=== PATIENT | female | born 1950 | race Caucasian/White ===

== ENCOUNTER → 2019-04-03 | Outpatient (CLI) | payer MEDICARE ==
[~2019-04-03] MED LIST: ISOVUE-370 76% 100ML VIAL (Q9967) As Ordered ONE
--- NOTE | 2019-04-03 11:55 | REP ---
CT neck soft tissues: 04/03/2019. Indication: Vocal cord paralysis. Comparison: None. Technique: Axial images of the neck soft tissues were obtained following the administration of 75 ml IV Isovue 370. Sagittal and coronal reconstructions were provided. Findings: There is questionable medial as aeration of the left true vocal cord. No abnormal solid soft tissue mass, abnormal fluid collection or lymphadenopathy within the neck soft tissues are detected. Bilateral carotid atherosclerotic disease is noted. Spondylosis of the cervical spine is present throughout. There is no severe narrowing of the spinal canal. No focal submandibular, parotid or thyroid gland abnormalities are present. No ocular, intraorbital or intracranial abnormalities are detected. Please see dedicated CT chest report for additional details. Impression: Questionable CT evidence of left vocal cord paralysis. Clinical/direct inspection correlation is necessary. Electronically Signed by Luis Enrique Trinh DO 04/03/2019 11:47 A
--- NOTE | 2019-04-04 07:57 | REP ---
Clinical: Vocal cord paralysis. Technique: Axial contrast enhanced images from the thoracic inlet to the upper abdomen with coronal and sagittal re-formations using 100 ml Isovue 370 intravenous contrast material. Comparison: None. Findings: The bilateral lung delvalle demonstrate chronic age-related changes and interstitial changes related to prior granulomatous disease including few scattered calcified granulomata. No focal consolidation, effusion, or pneumothorax. Tracheobronchial tree is patent. No adenopathy. Mediastinum demonstrates normal vasculature and heart/pericardium. Surrounding musculoskeletal structures are intact. Impression: Chronic changes related to prior granulomatous disease. No acute mediastinal or pleuroparenchymal process. Electronically Signed by Joseph Patel MD 04/04/2019 07:49 A
== END ==
LOC: M RAD 09:05
PROVIDERS: ATTEND Otolaryngology
DX: J38.01 Paralysis of vocal cords and larynx, unilateral (principal)
CPT/HCPCS: 70491; 71260; Q9967

== ENCOUNTER → 2019-10-02 | Outpatient (CLI) | payer MEDICARE, OTHER ==
[~2019-10-02] MED LIST changes: +FAMO20TA PO; +IRON65TA2 PO; -ISOVUE-370 76% 100ML VIAL (Q9967) As Ordered ONE; +VITAD1000T PO
== END ==
LOC: M LABSMTC 10:33
PROVIDERS: ATTEND Anesthesiology
DX: Z01.818 Encounter for other preprocedural examination (principal); Z11.59 Encounter for screening for other viral diseases
CPT/HCPCS: C9803; U0003

== ENCOUNTER 2019-10-05 07:09 | Day surgery (SDC) | payer OTHER ==
[~2019-10-05] VITALS: Ht 154.9 cm; Wt 50.8 kg
[~2019-10-05 07:09] MED LIST changes: +LR 1,000 ML IV ONE; +dexameTHASONE 4 MG/ML 1ML VIAL (J1100 PER 1MG) IV ONE
[2019-10-05] MEDS ORDERED: METHYLENE BLUE 0.5% (5MG/ML) 10 ML AMP (PROVAYBLUE)(Q9968 PER 1MG) As Ordered ONE (08:14)
[2019-10-05] MEDS ORDERED: LIDOCAINE W/EPINEPHRINE 1% 20ML VIAL As Ordered ONE (08:15)
[2019-10-05] MEDS ORDERED: OXYMETAZOLINE NASAL SPRAY (AFRIN) As Ordered ONE (08:15)
[2019-10-05] MEDS ORDERED: propofoL 200 MG/20 ML VIAL As Ordered ONE (08:19)
[2019-10-05] MEDS ORDERED: fentaNYL 100 MCG/2 ML INJECTION (J3010) As Ordered ONE (08:19)
[2019-10-05] MEDS ORDERED: SUCCINYLCHOLINE 100 MG/5 ML SYRINGE (J0330) As Ordered ONE (08:19)
[2019-10-05] MEDS ORDERED: MIDAZOLAM INJ 2MG/2ML VIAL (J2250 PER 1MG) As Ordered ONE (08:19)
[2019-10-05] MEDS ORDERED: ROCURONIUM BROMIDE 50 MG/5 ML VIAL As Ordered ONE (08:19)
[2019-10-05] MEDS ORDERED: LIDOCAINE 2% 100MG/5ML SDV (FOR ANES.) As Ordered ONE (08:19)
[2019-10-05] MEDS ORDERED: dexameTHASONE 4 MG/ML 1ML VIAL (J1100 PER 1MG) As Ordered ONE ×2 (08:35→08:36)
[2019-10-05] MEDS ORDERED: GLYCOPYRROLATE INJ 0.2 MG/ML 2 ML VIAL As Ordered ONE (08:55)
[2019-10-05] MEDS ORDERED: ONDANSETRON 4MG/2ML VIAL As Ordered ONE (09:02)
[2019-10-05] MEDS ORDERED: SUGAMMADEX SODIUM 500 MG/5 ML VIAL (BRIDION) As Ordered ONE ×2 (09:02→09:03)
[2019-10-05] MEDS ORDERED: ACETAMINOPHEN 1000MG 100ML IV BTL (OFIRMEV) (J0131 PER 10MG) As Ordered ONE (09:02)
[2019-10-05] MEDS ORDERED: fentaNYL 100 MCG/2 ML INJECTION (J3010) IV PRN (10:00)
[2019-10-05] MEDS ORDERED: ONDANSETRON 4MG/2ML VIAL IV PRN (10:00)
[2019-10-05] MEDS ORDERED: LR 1,000 ML IV SCH ×2 (10:00)
[2019-10-05 10:29] VITALS: BP 121/65
== END 2019-10-05 11:05 | disposition home or self-care (01) ==
LOC: M SDC 07:09
PROVIDERS: ATTEND Otolaryngology
DX: K14.3 Hypertrophy of tongue papillae (principal); J38.01 Paralysis of vocal cords and larynx, unilateral; D64.9 Anemia, unspecified; M19.90 Unspecified osteoarthritis, unspecified site; E55.9 Vitamin D deficiency, unspecified; Z79.899 Other long term (current) drug therapy; Z88.0 Allergy status to penicillin; Z88.2 Allergy status to sulfonamides; Z88.1 Allergy status to other antibiotic agents
CPT/HCPCS: 31536; 88305; J0131; J0330; J1100; J2250; J2405; J3010; Q9968

== ENCOUNTER → 2021-01-21 | Outpatient (CLI) | payer OTHER ==
[~2021-01-21] MED LIST changes: +COVI100V IM; +D31000TA2 PO; +GASTROGRAFIN SOLUTION 30ML (Q9963) As Ordered ONE; +ISOVUE-370 76% 100ML VIAL As Ordered ONE; -LR 1,000 ML IV ONE; +OMEP40CA4 PO; -VITAD1000T PO; -dexameTHASONE 4 MG/ML 1ML VIAL (J1100 PER 1MG) IV ONE
--- NOTE | 2021-01-22 09:08 | REP ---
INDICATION: LYMPHOMA. COMPARISON: None TECHNIQUE: Axial contrast-enhanced images from the lung bases to the pubic symphysis using oral and 100 cc Isovue 370 intravenous contrast material. Delayed images of the abdomen obtained. This CT examination was performed using the following dose reduction techniques: Automated exposure control, adjustment of mA and/or kv according to the patient's size, and the use of iterative reconstruction technique. FINDINGS: Liver, spleen, gallbladder, bilateral adrenal glands and right kidney are normal. Left kidney demonstrates multiple peripelvic cysts measuring roughly up to 2 cm diameter. The pancreas has a presumed atrophic appearance with partial fatty replacement., but there is somewhat irregular prominent low-density involving the head/uncinate process raising the possibility of acute pathology. The enteric system including stomach, small, and large bowel appears normal. No evidence for obstruction or acute inflammatory process. Normal terminal ileum and appendix are identified in the right lower quadrant. Scattered colonic diverticula noted without acute diverticulitis. Pelvis demonstrates normal bladder and prior hysterectomy. No ascites. No free air. No intraperitoneal or retroperitoneal adenopathy. Few shotty inguinal lymph nodes are identified and nonspecific. Abdominal aorta and vasculature appear normal. Musculoskeletal structures are intact and without acute osseous abnormality. IMPRESSION: 1. Somewhat irregular appearance to the pancreas may be secondary to age-related atrophic changes, but correlation/follow-up should be considered to exclude the possibility of acute pathology at the head/uncinate. Pre and postcontrast MRI of the abdomen may be warranted. 2. No significant adenopathy. 3. No further acute abdominal pathology appreciated. No ascites. No free air. No fat stranding. No adenopathy. <Electronically signed by Joseph Patel > 01/22/21 [id number]
--- NOTE | 2021-01-27 08:40 | REP ---
INDICATION: LYMPHOMA COMPARISON: Outside CT examination dated 09/14/2019 TECHNIQUE: Axial contrast enhanced images from the thoracic inlet to the upper abdomen with coronal and sagittal reformations using 100 ml Isovue 370 intravenous contrast material. Examination is followed by CT of the abdomen and pelvis. This CT examination was performed using the following dose reduction techniques: Automated exposure control, adjustment of mA and/or kv according to the patient's size, and use of iterative reconstruction technique. FINDINGS: Few scattered calcified and noncalcified nodules are again identified. There is a 1.7 cm density in the right apex along the pleural surface likely scarring and similar to prior examination. No acute consolidation. No effusion. No pneumothorax. Tracheobronchial tree is patent. Few calcified mediastinal and hilar lymph nodes noted without acute current axillary, mediastinal or hilar adenopathy. Few prevascular mediastinal lymph nodes again identified and unchanged. Thoracic aorta, pulmonary vasculature and heart/pericardium are relatively stable and within normal limits. Atherosclerotic changes to the aorta and coronary arteries noted. Surrounding musculoskeletal structures are intact and without acute osseous abnormality. IMPRESSION: 1. Chronic findings consistent with granulomatous disease. 2. No acute mediastinal or pleuroparenchymal process. 3. Few mediastinal lymph nodes are essentially unchanged as compared with 10/07/2020. No significant progressive adenopathy noted. <Electronically signed by Joseph Patel > 01/27/21 [id number]
== END ==
LOC: M RAD 11:52
PROVIDERS: ATTEND Internal Medicine Hematology & Oncology
DX: C83.00 Small cell B-cell lymphoma, unspecified site (principal); N28.1 Cyst of kidney, acquired; K57.90 Diverticulosis of intestine, part unspecified, without perforation or abscess without bleeding; K86.9 Disease of pancreas, unspecified; R91.8 Other nonspecific abnormal finding of lung field; I70.0 Atherosclerosis of aorta; I25.10 Atherosclerotic heart disease of native coronary artery without angina pectoris
CPT/HCPCS: 71260; 74177; Q9963; Q9967

== ENCOUNTER → 2021-02-07 | Outpatient (CLI) | payer OTHER ==
[~2021-02-07] MED LIST changes: -GASTROGRAFIN SOLUTION 30ML (Q9963) As Ordered ONE; -ISOVUE-370 76% 100ML VIAL As Ordered ONE; +PROHANCE 279.3MG/ML 15ML VIAL As Ordered ONE
--- NOTE | 2021-02-07 19:07 | REP ---
INDICATION: ABN FINDINGS OF PANCREAS. COMPARISON: Prior CT of the abdomen and pelvis 01/21/2021 was reviewed. TECHNIQUE: 3T multiplanar MRI imaging of the pancreas was obtained using various sequences. Exam is performed before and after intravenous gadolinium administration. Gadolinium utilized 9 cc of ProHance. FINDINGS: There is rather extensive appearing pancreatic atrophy. There are no enhancing pancreatic mass lesions. There is no evidence of intrapancreatic ductal dilatation. There are multiple mm sized pancreatic cysts. There is no free fluid in the abdomen or retroperitoneum. There are multiple left renal parapelvic cysts. There are no enhancing hepatic abnormalities. There are no abnormal renal or adrenal lesions which enhance. There is no para-aortic adenopathy. The cortical and marrow signal seen throughout the imaged osseous structures is within normal limits. IMPRESSION: Advanced pancreatic atrophic change and tiny cysts. There is no evidence of abnormal enhancement or ductal dilatation. Other findings as described above. <Electronically signed by Isaiah Choi > 02/07/21 [id number]
== END ==
LOC: M RAD 16:52
PROVIDERS: ATTEND Internal Medicine Hematology & Oncology
DX: R93.5 Abnormal findings on diagnostic imaging of other abdominal regions, including retroperitoneum (principal); K86.2 Cyst of pancreas; N28.1 Cyst of kidney, acquired; K86.89 Other specified diseases of pancreas
CPT/HCPCS: 74183; A9576

== ENCOUNTER → 2021-02-22 | Outpatient (CLI) | payer OTHER ==
[~2021-02-22] MED LIST changes: +OMEP1CAP73 PO; -PROHANCE 279.3MG/ML 15ML VIAL As Ordered ONE; +SUCR1TA PO
== END ==
LOC: M LABSMTC 11:09
PROVIDERS: ATTEND Anesthesiology
DX: Z01.812 Encounter for preprocedural laboratory examination (principal); Z20.822 Contact with and (suspected) exposure to COVID-19

== ENCOUNTER 2021-02-27 10:55 | Day surgery (SDC) | payer OTHER ==
[~2021-02-27] VITALS: Ht 152.4 cm; Wt 44.0 kg
[~2021-02-27 10:55] MED LIST changes: +NS 1,000 ML IV ONE
[2021-02-27] MEDS ORDERED: propofoL 500 MG/50 ML VIAL As Ordered ONE (12:10)
[2021-02-27] MEDS ORDERED: fentaNYL 100 MCG/2 ML INJECTION (J3010) As Ordered ONE (12:10)
[2021-02-27] MEDS ORDERED: ePHEDrine SULFATE 25 MG/5 ML(5MG/ML) SYRINGE As Ordered ONE (13:33)
--- NOTE | 2021-02-27 13:50 | ROOR ---
Patient Name: Fifi Andrade Procedure Date: 02/27/2021 1:18 PM Date of : 1950 Age: 70 Room: [facility] Gender: Female Note Status: Finalized Procedure: Upper GI endoscopy Indications: Dyspepsia, Weight loss Providers: Hansel Lawler MD Referring MD: Zohreh PEARCE MD Requesting Provider: Medicines: Monitored Anesthesia Care Complications: No immediate complications. Procedure: Pre-Anesthesia Assessment: - Prior to the procedure, a History and Physical was performed, and patient medications and allergies were reviewed. The patient is competent. The risks and benefits of the procedure and the sedation options and risks were discussed with the patient. All questions were answered and informed consent was obtained. Patient identification and proposed procedure were verified by the physician, the nurse and the anesthesiologist in the procedure room. Mental Status Examination: alert and oriented. Airway Examination: normal oropharyngeal airway and neck mobility. Respiratory Examination: clear to auscultation. CV Examination: normal. Prophylactic Antibiotics: The patient does not require prophylactic antibiotics. Prior Anticoagulants: The patient has taken no previous anticoagulant or antiplatelet agents. ASA Grade Assessment: II - A patient with mild systemic disease. After reviewing the risks and benefits, the patient was deemed in satisfactory condition to undergo the procedure. The anesthesia plan was to use monitored anesthesia care (MAC). Immediately prior to administration of medications, the patient was re-assessed for adequacy to receive sedatives. The heart rate, respiratory rate, oxygen saturations, blood pressure, adequacy of pulmonary ventilation, and response to care were monitored throughout the procedure. The physical status of the patient was re-assessed after the procedure. The Endoscope was introduced through the mouth, and advanced to the second part of duodenum. The upper GI endoscopy was accomplished without difficulty. The patient tolerated the procedure well. Findings: The examined esophagus was normal. The Z-line was regular and was found 40 cm from the incisors. Scattered minimal inflammation characterized by erythema and granularity was found in the gastric antrum. Biopsies were taken with a cold forceps for Helicobacter pylori testing. Verification of patient identification for the specimen was done by the physician and nurse using the patient's name, date and medical record number. Estimated blood loss was minimal. The duodenal bulb and second portion of the duodenum were normal. Biopsies for histology were taken with a cold forceps for evaluation of celiac disease. Impression: - Normal esophagus. - Z-line regular, 40 cm from the incisors. - Gastritis. Biopsied. - Normal duodenal bulb and second portion of the duodenum. Biopsied. Recommendation: - Patient has a contact number available for emergencies. The signs and symptoms of potential delayed complications were discussed with the patient. Return to normal activities tomorrow. Written discharge instructions were provided to the patient. - High fiber diet. - Continue present medications. - Await pathology results. - Return to GI clinic in [facility] (address: [address] [place] [address], [facility], [place], [place],[address]) in 4 -- 6 weeks. Please call GI clinic @ [phone] for apppointment date and time. - Return to primary care physician. Procedure Code(s): --- Professional --- 84535, Esophagogastroduodenoscopy, flexible, transoral; with biopsy, single or multiple Diagnosis Code(s): --- Professional --- K29.70, Gastritis, unspecified, without bleeding R10.13, Epigastric pain R63.4, Abnormal weight loss CPT copyright 2019 [employer]. All rights reserved. The codes documented in this report are preliminary and upon industrial locomotive operator review may be revised to meet current compliance requirements. Hansel Lawler MD Hansel Lawler MD 02/27/2021 1:50:31 PM Electronically signed by Hansel Lawler MD Number of Addenda: 0 Note Initiated On: 02/27/2021 1:18 PM Estimated Blood Loss: Estimated blood loss was minimal.
--- NOTE | 2021-02-27 13:58 | ROOR ---
Patient Name: Fifi Andrade Procedure Date: 02/27/2021 1:18 PM Date of : 1950 Age: 70 Room: [facility] Gender: Female Note Status: Finalized Procedure: Colonoscopy Indications: Change in bowel habits, Constipation, Weight loss Providers: Hansel Lawler MD Referring MD: Zohreh PEARCE MD Requesting Provider: Medicines: Monitored Anesthesia Care Complications: No immediate complications. Procedure: Pre-Anesthesia Assessment: - Prior to the procedure, a History and Physical was performed, and patient medications and allergies were reviewed. The patient is competent. The risks and benefits of the procedure and the sedation options and risks were discussed with the patient. All questions were answered and informed consent was obtained. Patient identification and proposed procedure were verified by the physician, the nurse and the anesthesiologist in the procedure room. Mental Status Examination: alert and oriented. Airway Examination: normal oropharyngeal airway and neck mobility. Respiratory Examination: clear to auscultation. CV Examination: normal. Prophylactic Antibiotics: The patient does not require prophylactic antibiotics. Prior Anticoagulants: The patient has taken no previous anticoagulant or antiplatelet agents. ASA Grade Assessment: II - A patient with mild systemic disease. After reviewing the risks and benefits, the patient was deemed in satisfactory condition to undergo the procedure. The anesthesia plan was to use monitored anesthesia care (MAC). Immediately prior to administration of medications, the patient was re-assessed for adequacy to receive sedatives. The heart rate, respiratory rate, oxygen saturations, blood pressure, adequacy of pulmonary ventilation, and response to care were monitored throughout the procedure. The physical status of the patient was re-assessed after the procedure. The Colonoscope was introduced through the anus and advanced to the terminal ileum, with identification of the appendiceal orifice and IC valve. The colonoscopy was performed without difficulty. The patient tolerated the procedure well. The quality of the bowel preparation was good. The terminal ileum, ileocecal valve, appendiceal orifice, and rectum were photographed. Scope insertion time was 2 minutes. Scope withdrawal time was 9 minutes. The total duration of the procedure was 12 minutes. Findings: The perianal and digital rectal examinations were normal. The terminal ileum appeared normal. A 10 mm polyp was found in the rectum. The polyp was sessile. The polyp was removed with a hot snare. Resection and retrieval were complete. Verification of patient identification for the specimen was done by the physician and nurse using the patient's name, date and medical record number. Multiple small and large-mouthed diverticula were found from sigmoid to descending colon. There was no evidence of diverticular bleeding. Non-bleeding external and internal hemorrhoids were found during retroflexion. The hemorrhoids were medium-sized. Impression: - The examined portion of the ileum was normal. - One 10 mm polyp in the rectum, removed with a hot snare. Resected and retrieved. - Moderate diverticulosis from sigmoid to descending colon. There was no evidence of diverticular bleeding. - Non-bleeding external and internal hemorrhoids. Recommendation: - Patient has a contact number available for emergencies. The signs and symptoms of potential delayed complications were discussed with the patient. Return to normal activities tomorrow. Written discharge instructions were provided to the patient. - High fiber diet. - Continue present medications. - Await pathology results. - Repeat colonoscopy in 5 years for surveillance based on pathology results. - Return to GI clinic in [facility] (address: [address] [place] [address], [address] [place] [address], [place], [place],[address]) in 4 -- 6 weeks. Please call GI clinic @ [phone] for apppointment date and time. - Return to primary care physician. Procedure Code(s): --- Professional --- 53546, Colonoscopy, flexible; with removal of tumor(s), polyp(s), or other lesion(s) by snare technique Diagnosis Code(s): --- Professional --- K64.8, Other hemorrhoids K62.1, Rectal polyp R19.4, Change in bowel habit K59.00, Constipation, unspecified R63.4, Abnormal weight loss K57.30, Diverticulosis of large intestine without perforation or abscess without bleeding CPT copyright 2019 [employer]. All rights reserved. The codes documented in this report are preliminary and upon electrical plumbing supervisor review may be revised to meet current compliance requirements. Hansel Lawler MD Hansel Lawler MD 02/27/2021 1:57:56 PM Electronically signed by Hansel Lawler MD Number of Addenda: 0 Note Initiated On: 02/27/2021 1:18 PM Estimated Blood Loss: Estimated blood loss was minimal.
[2021-02-27 14:21] VITALS: BP 122/70
== END 2021-02-27 14:22 | disposition home or self-care (01) ==
LOC: M OPP 10:55
PROVIDERS: ATTEND Internal Medicine Gastroenterology
DX: D12.8 Benign neoplasm of rectum (principal); K64.8 Other hemorrhoids; K57.30 Diverticulosis of large intestine without perforation or abscess without bleeding; R63.4 Abnormal weight loss; R19.4 Change in bowel habit; K29.70 Gastritis, unspecified, without bleeding; R10.13 Epigastric pain; Z79.899 Other long term (current) drug therapy; Z88.0 Allergy status to penicillin; Z88.2 Allergy status to sulfonamides
CPT/HCPCS: 43239; 45385; 88305; J3010

== ENCOUNTER → 2022-10-26 | Outpatient (REF) | payer MEDICARE, OTHER ==
[~2022-10-26] MED LIST changes: +CREO12CA PO; -D31000TA2 PO; -NS 1,000 ML IV ONE; +SODI1SOL4 OU; +SUCR1TAB56; +SUCR1TAB56 PO; +VITA100093 PO
[2022-10-26 14:46] LABS: APPEARANCE, URINE CLEAR (CLEAR); BACTERIA, URINE AUTO NEGATIVE (NEGATIVE); BILIRUBIN, URINE AUTO NEGATIVE (NEGATIVE); BLOOD, URINE BLOOD NEGATIVE (NEGATIVE); COLOR, URINE YELLOW (YELLOW); GLUCOSE, URINE (UA) AUTO NEGATIVE (NEGATIVE); KETONE, URINE AUTO NEGATIVE (NEGATIVE); LEUKOCYTE ESTERASE, URINE AUTO TRACE (NEGATIVE); NITRITE, URINE AUTO NEGATIVE (NEGATIVE); PROTEIN, URINE AUTO NEGATIVE (NEGATIVE); RBC, URINE AUTO 1 /HPF (0-3); SPECIFIC GRAVITY URINE AUTO 1.011 (1.002-1.035); SQUAMOUS EPITHELIAL CELL UR AU 1 /HPF (0-6); UROBILINOGEN, URINE AUTO 0.2 mg/dL (0.0-2.0); WBC, URINE AUTO 0 /HPF (0-3)
== END ==
LOC: M SMT 13:02
PROVIDERS: ATTEND Physician Assistant
DX: R35.0 Frequency of micturition (principal)

== ENCOUNTER → 2023-06-15 | Outpatient (CLI) | payer MEDICARE ==
[~2023-06-15] MED LIST changes: +OMEP-173 PO; -SUCR1TAB56
== END ==
LOC: M ONCR 08:13
PROVIDERS: ATTEND General Practice
DX: C50.412 Malignant neoplasm of upper-outer quadrant of left female breast (principal); Z71.2 Person consulting for explanation of examination or test findings; Z80.49 Family history of malignant neoplasm of other genital organs; Z80.0 Family history of malignant neoplasm of digestive organs; Z80.1 Family history of malignant neoplasm of trachea, bronchus and lung; Z88.0 Allergy status to penicillin; Z88.1 Allergy status to other antibiotic agents; Z88.2 Allergy status to sulfonamides; Z79.899 Other long term (current) drug therapy

== ENCOUNTER → 2023-08-13 | Outpatient (CLI) | payer MEDICARE ==
[~2023-08-13] MED LIST changes: +ANAS1TAB2 PO
== END ==
LOC: M ONCR 14:18
PROVIDERS: ATTEND General Practice
DX: C50.412 Malignant neoplasm of upper-outer quadrant of left female breast (principal); Z79.899 Other long term (current) drug therapy; Z88.0 Allergy status to penicillin; Z88.1 Allergy status to other antibiotic agents; Z88.2 Allergy status to sulfonamides

== ENCOUNTER 2023-09-10 09:01 | Outpatient (RCR) | payer MEDICARE | END 2023-09-21 | LOC: M ONCR 09:01 | PROVIDERS: ATTEND General Practice | DX: Z51.0 Encounter for antineoplastic radiation therapy (principal); C50.412 Malignant neoplasm of upper-outer quadrant of left female breast ==

== ENCOUNTER → 2023-11-03 | Outpatient (REF) | payer MEDICARE | LOC: M LAB REF 10:28 | PROVIDERS: ATTEND Nurse Practitioner Family | DX: R10.12 Left upper quadrant pain (principal); R19.7 Diarrhea, unspecified; R10.13 Epigastric pain ==

== ENCOUNTER → 2023-11-12 | Outpatient (REF) | payer MEDICARE | LOC: M LAB REF 12:00 | PROVIDERS: ATTEND Nurse Practitioner Family | DX: R10.12 Left upper quadrant pain (principal); R10.13 Epigastric pain; R19.7 Diarrhea, unspecified ==

== ENCOUNTER → 2024-02-14 | Day surgery (SDC) | payer MEDICARE ==
[~2024-02-14] VITALS: Ht 154.9 cm; Wt 45.1 kg
[~2024-02-14] MED LIST changes: +propofoL 200 MG/20 ML VIAL As Ordered ONE
[2024-02-14] MEDS: NS 1,000 ML IV ONE (14:00)
[2024-02-14 15:50] VITALS: BP 138/74; O2SAT 100
== END | disposition home or self-care (01) ==
LOC: M OPP 12:04
PROVIDERS: ATTEND Internal Medicine Gastroenterology
DX: R12 Heartburn (principal); F41.9 Anxiety disorder, unspecified; F32.A Depression, unspecified; Z88.1 Allergy status to other antibiotic agents; Z88.0 Allergy status to penicillin; Z88.2 Allergy status to sulfonamides; Z92.3 Personal history of irradiation; Z92.21 Personal history of antineoplastic chemotherapy